=== PATIENT | female | born 1990 | race Caucasian/White ===

== ENCOUNTER 2017-06-26 13:57 | Emergency (ER) | payer OTHER ==
[~2017-06-26] VITALS: Ht 162.6 cm; Wt 88.6 kg
[~2017-06-26 13:57] MED LIST: BACTRIM,SEPT1 TABLET PO; CLOZAPINE25 MG PO; COLACE100 MG PO; DILAUDID2 MG PO; Decadron PO; ENDOCET 5-3251 EACH PO; FEOSOL325 MG PO; GABAPENTIN400 MG PO; LEVO-T125 MCG PO; LOESTRIN1 EACH PO; LOPRESSOR25 MG PO; Levothroid,Synthroid PO; MOBIC15 MG PO; MOTRIN600 MG PO; MOTRIN800 MG PO; PERCOCET 5/31 TABLET PO; PROMETHAZINE HC25 M1 PO; Reglan PO; SERTRALINE HCL25 MG PO; SERTRALINE HCL50 MG PO; SKELAXIN400 M1 PO; SYNTHROID125 MCG PO; SYNTHROID175 MCG PO; SYNTHROID200 MCG PO; TOPAMAX100 MG PO; TOPAMAX50 MG PO; TYLENOL EXTRA500 MG PO; TYLENOL REGULA325 MG PO; ULTRAM50 MG PO; UNISOM50 MG PO; VICODIN,LORT1 TABLET PO; Vicodin,Norco 5/325 PO; ZANAFLEX4 M1 PO; ZOFRAN4 MG PO; ZOLOFT100 MG PO; Zoloft PO
[2017-06-26 15:22] LABS: HEMATOCRIT 43.7 % (36.0-46.0); MCH 29.1 PG (29.0-34.0); MCHC 33.6 G/DL (30.0-36.0); MCV 86.5 FL (83-99); MEAN PLAT.VOLUME 10.1 uM^3 (9.5-12.4); PLATELET COUNT 257 K/uL (156-360); RBC DIS.WIDTH-CV 12.2 % (11.8-14.6); RBC DIS.WIDTH-SD 38.4 % (39-53); RED BLOOD COUNT 5.05 M/uL (3.80-5.20); WHITE BLOOD COUNT 10.3 K/uL (4.1-10.2)
[2017-06-26 15:33] LABS: CHLORIDE 107 mEq/L (99-109); SODIUM 140 mEq/L (136-147)
[2017-06-26 15:35] LABS: GLUCOSE 82 mg/dL (70-99)
[2017-06-26 15:36] LABS: ANION GAP 9 MEQ/L (2-14)
[2017-06-26 15:39] LABS: GFR ESTIMATE (CALCULATED) > 59 mL/min/
[2017-06-26 15:40] LABS: UREA NITROGEN (BUN) 7 mg/dL (9-23)
[2017-06-26 15:42] LABS: TROP-I INTERPRETATION NEGATIVE; TROPONIN-I < 0.01 ng/mL (0.0-0.30)
[2017-06-26 16:45] LABS: D-DIMER ELISA < 150.00 ng/mLDDU (<230)
[2017-06-26 17:07] LABS: ADD MIUA? YES; BILIRUBIN NEGATIVE; BLOOD NEGATIVE; COLOR YELLOW ((YELLOW)); GLUCOSE (STRIP) NEGATIVE; KETONES 20; LEUKOCYTES NEGATIVE; NITRITE NEGATIVE; PROTEIN (STRIP) 30; SPECIFIC GRAVITY 1.021 (1.000-1.030); UROBILINOGEN 0.2 MG/DL (0.2-1.0)
[2017-06-26 17:13] LABS: INTERNAL CONTROL VALID? YES
[2017-06-26 17:15] LABS: BACTERIA 3+ /HPF; EPITHELIAL CELLS 2+ /HPF; MUCUS TRACE /LPF; RED BLOOD CELLS 0-5 /HPF (0-5)
[2017-06-26 17:31] LABS: TROP-I INTERPRETATION NEGATIVE; TROPONIN-I < 0.01 ng/mL (0.0-0.30)
[2017-06-26] MEDS ORDERED: VALIUM2 MG PO (18:45)
[2017-06-26] MEDS ORDERED: ZOFRAN ODT4 MG PO (18:45)
[2017-06-26 20:51] VITALS: BP 131/85
== END 2017-06-26 20:53 | disposition home or self-care (01) ==
LOC: EME 13:57
PROVIDERS: Physician Assistant
DX: I47.9 Paroxysmal tachycardia, unspecified (principal); R42 Dizziness and giddiness; R11.2 Nausea with vomiting, unspecified; R94.6 Abnormal results of thyroid function studies; E03.9 Hypothyroidism, unspecified; I25.2 Old myocardial infarction; J45.909 Unspecified asthma, uncomplicated; Z86.718 Personal history of other venous thrombosis and embolism; Z88.0 Allergy status to penicillin
CPT/HCPCS: 71020; 80048; 81003; 84443; 84484; 84703; 85027; 85379; 93005; 99281; 99285; J1885; J2405; J7030

== ENCOUNTER 2017-12-03 11:48 | Emergency (ER) | payer OTHER ==
[~2017-12-03] VITALS: Ht 162.6 cm; Wt 95.7 kg
[~2017-12-03 11:48] MED LIST changes: +VALIUM2 MG PO; +ZOFRAN ODT4 MG PO
[2017-12-03 12:36] LABS: HEMATOCRIT 42.5 % (36.0-46.0); HEMOGLOBIN 14.4 G/DL (11.9-15.5); MCH 29.1 PG (29.0-34.0); MCHC 33.9 G/DL (30.0-36.0); MCV 85.9 FL (83-99); PLATELET COUNT 291 K/uL (156-360); RBC DIS.WIDTH-CV 12.6 % (11.8-14.6); RBC DIS.WIDTH-SD 39.3 % (39-53); RED BLOOD COUNT 4.95 M/uL (3.80-5.20); WHITE BLOOD COUNT 10.8 K/uL (4.1-10.2)
[2017-12-03 12:50] LABS: CHLORIDE 104 mEq/L (99-109); POTASSIUM 4.5 mEq/L (3.7-5.4); SODIUM 138 mEq/L (136-147)
[2017-12-03 12:52] LABS: GLUCOSE 80 mg/dL (70-99)
[2017-12-03 12:56] LABS: CREATININE 0.8 mg/dL (0.6-1.3); GFR ESTIMATE (CALCULATED) > 59 mL/min/
[2017-12-03 12:57] LABS: UREA NITROGEN (BUN) 8 mg/dL (9-23)
[2017-12-03 12:58] LABS: TROP-I INTERPRETATION NEGATIVE; TROPONIN-I < 0.01 ng/mL (0.0-0.30)
[2017-12-03 13:45] LABS: ALBUMIN 4.3 g/dL (3.2-4.8)
[2017-12-03 13:47] LABS: TOTAL PROTEIN 8.1 g/dL (6.4-8.3)
[2017-12-03 13:49] LABS: TOTAL BILIRUBIN 0.4 mg/dL (0.0-1.0)
[2017-12-03 13:50] LABS: ALKALINE PHOSPHATASE 86 IU/L (3-129)
[2017-12-03 13:53] LABS: ALT (GPT) 16 IU/L (3-49); AST (GOT) 22 IU/L (2-34); DIRECT BILIRUBIN 0.1 mg/dL (0.0-0.3)
[2017-12-03 13:54] LABS: LIPASE 17 U/L (1.0-51.0)
[2017-12-03 14:00] LABS: QUANTITATIVE HCG < 4.0 MIU/ML
[2017-12-03] MEDS ORDERED: PHENERGAN25 MG PR (14:35)
[2017-12-03 14:50] VITALS: BP 127/79
== END 2017-12-03 14:50 | disposition home or self-care (01) ==
LOC: EME 11:48
DX: R11.2 Nausea with vomiting, unspecified (principal); R00.2 Palpitations; I49.8 Other specified cardiac arrhythmias; J45.909 Unspecified asthma, uncomplicated; E03.9 Hypothyroidism, unspecified; F41.9 Anxiety disorder, unspecified; G43.909 Migraine, unspecified, not intractable, without status migrainosus; I25.2 Old myocardial infarction; Z86.718 Personal history of other venous thrombosis and embolism; Z88.0 Allergy status to penicillin; Z91.040 Latex allergy status
CPT/HCPCS: 71046; 80048; 80076; 83690; 84484; 84702; 85027; 93005; 99281; 99284; J2405; J7030

== ENCOUNTER 2018-03-10 14:17 | Emergency (ER) | payer OTHER ==
[~2018-03-10] VITALS: Ht 162.6 cm; Wt 98.3 kg
[~2018-03-10 14:17] MED LIST changes: +PHENERGAN25 MG PR
[2018-03-10 15:46] LABS: HEMOGLOBIN 14.5 G/DL (11.9-15.5); MCH 28.9 PG (29.0-34.0); MCHC 34.5 G/DL (30.0-36.0); MCV 83.8 FL (83-99); PLATELET COUNT 283 K/uL (156-360); RBC DIS.WIDTH-CV 12.6 % (11.8-14.6); RBC DIS.WIDTH-SD 38.2 % (39-53); RED BLOOD COUNT 5.01 M/uL (3.80-5.20); WHITE BLOOD COUNT 12.9 K/uL (4.1-10.2)
[2018-03-10 15:55] LABS: ALBUMIN 4.3 g/dL (3.2-4.8); CHLORIDE 107 mEq/L (99-109); POTASSIUM 3.6 mEq/L (3.7-5.4); SODIUM 142 mEq/L (136-147)
[2018-03-10 15:57] LABS: GLUCOSE 95 mg/dL (70-99); TOTAL PROTEIN 7.5 g/dL (6.4-8.3)
[2018-03-10 15:59] LABS: TOTAL BILIRUBIN 0.5 mg/dL (0.0-1.0)
[2018-03-10 16:01] LABS: ALKALINE PHOSPHATASE 79 IU/L (3-129); CREATININE 0.8 mg/dL (0.6-1.3); GFR ESTIMATE (CALCULATED) > 59 mL/min/
[2018-03-10 16:02] LABS: UREA NITROGEN (BUN) 7 mg/dL (9-23)
[2018-03-10 16:03] LABS: AST (GOT) 17 IU/L (2-34)
[2018-03-10 16:04] LABS: ALT (GPT) 17 IU/L (3-49); LIPASE 16 U/L (1.0-51.0)
[2018-03-10 16:07] LABS: TROP-I INTERPRETATION NEGATIVE; TROPONIN-I < 0.01 ng/mL (0.0-0.30)
[2018-03-10] MEDS ORDERED: NORCO 5/3251 TABLET PO (17:48)
[2018-03-10 18:17] VITALS: BP 138/80
== END 2018-03-10 18:20 | disposition home or self-care (01) ==
LOC: EME 14:17
PROVIDERS: Emergency Medicine
DX: R07.89 Other chest pain (principal); R11.2 Nausea with vomiting, unspecified; E03.9 Hypothyroidism, unspecified; J45.909 Unspecified asthma, uncomplicated; G43.909 Migraine, unspecified, not intractable, without status migrainosus; I25.2 Old myocardial infarction; F41.9 Anxiety disorder, unspecified; Z85.841 Personal history of malignant neoplasm of brain; Z86.718 Personal history of other venous thrombosis and embolism; Z88.0 Allergy status to penicillin; Z91.040 Latex allergy status
CPT/HCPCS: 71045; 71275; 80053; 83690; 84484; 85027; 86850; 86900; 86901; 93005; 99281; 99285; J2405; J7030

== ENCOUNTER 2018-03-20 22:03 | Emergency (ER) | payer OTHER ==
[~2018-03-20] VITALS: Ht 162.6 cm; Wt 97.7 kg
[~2018-03-20 22:03] MED LIST changes: +NORCO 5/3251 TABLET PO
[2018-03-20 22:31] LABS: HEMATOCRIT 38.4 % (36.0-46.0); HEMOGLOBIN 13.1 G/DL (11.9-15.5); MCH 29.5 PG (29.0-34.0); MCHC 34.1 G/DL (30.0-36.0); MCV 86.5 FL (83-99); PLATELET COUNT 248 K/uL (156-360); RBC DIS.WIDTH-CV 13.1 % (11.8-14.6); RBC DIS.WIDTH-SD 40.5 % (39-53); RED BLOOD COUNT 4.44 M/uL (3.80-5.20); WHITE BLOOD COUNT 10.7 K/uL (4.1-10.2)
[2018-03-20 22:40] LABS: APPEARANCE CLEAR ((CLEAR)); BILIRUBIN NEGATIVE; BLOOD NEGATIVE; COLOR YELLOW ((YELLOW)); GLUCOSE (STRIP) NEGATIVE; KETONES NEGATIVE; LEUKOCYTES NEGATIVE; NITRITE NEGATIVE; PROTEIN (STRIP) NEGATIVE; UCUL ADDED? NO; UROBILINOGEN 0.2 MG/DL (0.2-1.0)
[2018-03-20 22:46] LABS: CHLORIDE 107 mEq/L (99-109); SODIUM 141 mEq/L (136-147)
[2018-03-20 22:48] LABS: GLUCOSE 133 mg/dL (70-99); TOTAL PROTEIN 6.9 g/dL (6.4-8.3)
[2018-03-20 22:50] LABS: TOTAL BILIRUBIN 0.4 mg/dL (0.0-1.0)
[2018-03-20 22:52] LABS: ALKALINE PHOSPHATASE 68 IU/L (3-129); CREATININE 0.9 mg/dL (0.6-1.3); GFR ESTIMATE (CALCULATED) > 59 mL/min/; QUANTITATIVE HCG < 4.0 MIU/ML
[2018-03-20 22:53] LABS: UREA NITROGEN (BUN) 8 mg/dL (9-23)
[2018-03-20 22:54] LABS: AST (GOT) 18 IU/L (2-34)
[2018-03-20 22:55] LABS: ALT (GPT) 14 IU/L (3-49)
[2018-03-20 23:08] LABS: LIPASE 17 U/L (1.0-51.0)
[2018-03-21] MEDS ORDERED: ZOFRAN4 MG SL (01:59)
[2018-03-21 02:22] VITALS: BP 137/91
== END 2018-03-21 02:23 | disposition home or self-care (01) ==
LOC: EME 22:03
DX: R10.31 Right lower quadrant pain (principal); Q43.3 Congenital malformations of intestinal fixation; R30.0 Dysuria; M54.5 Low back pain; R11.2 Nausea with vomiting, unspecified; I25.2 Old myocardial infarction; E03.9 Hypothyroidism, unspecified; Z86.718 Personal history of other venous thrombosis and embolism; Z88.0 Allergy status to penicillin
CPT/HCPCS: 74177; 76856; 80053; 81003; 83690; 84702; 85027; 87210; 99281; 99285; J1885; J2405; J7030

== ENCOUNTER 2018-07-08 11:10 | Emergency (ER) | payer OTHER ==
[~2018-07-08] VITALS: Ht 162.6 cm; Wt 94.3 kg
[~2018-07-08 11:10] MED LIST changes: +ZOFRAN4 MG SL
[2018-07-08 12:29] LABS: HEMATOCRIT 41.6 % (36.0-46.0); HEMOGLOBIN 13.9 G/DL (11.9-15.5); MCH 28.1 PG (29.0-34.0); MCHC 33.4 G/DL (30.0-36.0); PLATELET COUNT 266 K/uL (156-360); RBC DIS.WIDTH-CV 12.8 % (11.8-14.6); RED BLOOD COUNT 4.95 M/uL (3.80-5.20); WHITE BLOOD COUNT 8.2 K/uL (4.1-10.2)
[2018-07-08 12:38] LABS: ALBUMIN 4.3 g/dL (3.2-4.8); CHLORIDE 110 mEq/L (99-109); POTASSIUM 4.2 mEq/L (3.7-5.4); SODIUM 140 mEq/L (136-147)
[2018-07-08 12:40] LABS: GLUCOSE 85 mg/dL (70-99); TOTAL PROTEIN 7.3 g/dL (6.4-8.3)
[2018-07-08 12:42] LABS: TOTAL BILIRUBIN 0.5 mg/dL (0.0-1.0)
[2018-07-08 12:44] LABS: ALKALINE PHOSPHATASE 85 IU/L (3-129); CREATININE 0.8 mg/dL (0.6-1.3); GFR ESTIMATE (CALCULATED) > 59 mL/min/
[2018-07-08 12:45] LABS: UREA NITROGEN (BUN) 6 mg/dL (9-23)
[2018-07-08 12:46] LABS: AST (GOT) 17 IU/L (2-34)
[2018-07-08 12:47] LABS: ALT (GPT) 15 IU/L (3-49)
[2018-07-08 12:53] LABS: QUANTITATIVE HCG < 4.0 MIU/ML
[2018-07-08 13:30] LABS: LIPASE 63 U/L (1.0-51.0)
[2018-07-08] MEDS ORDERED: REGLAN10 MG PO (13:48)
[2018-07-08] MEDS ORDERED: FIORINAL1 TABLET PO (13:48)
[2018-07-08 14:10] VITALS: BP 151/100
== END 2018-07-08 14:25 | disposition home or self-care (01) ==
LOC: EME 11:10
PROVIDERS: Physician Assistant
DX: R51 Headache (principal); R11.10 Vomiting, unspecified; E03.9 Hypothyroidism, unspecified; Z86.718 Personal history of other venous thrombosis and embolism; Z88.0 Allergy status to penicillin
CPT/HCPCS: 70450; 80053; 81003; 83690; 84702; 85027; 99281; 99284; J1100; J1885; J2765; J7030